=== PATIENT | female | born 1970 | race Caucasian/White ===

== ENCOUNTER → 2018-11-07 | Outpatient (REF) | payer BC ==
[~2018-11-07] MED LIST: ANOR1AER INH; BUSP10TA PO; FURO20TA2 PO; PROAAER10 INH; RANI150T PO; TRAM50TA2 PO
[2018-11-12 00:06] LABS: URINE METANEPHR/CREAT RATIO 1.1 (0.0-1.0)
[2018-11-12 00:06] LABS: METANEPHRINE TOTAL URINE 93 ug/L (Undefined); METANEPHRINE URINE 149 ug/24 hr (45-290); NORMETANEPHRINE TOTAL URINE 670 ug/L (Undefined); NORMETANEPHRINE URINE 1072 ug/24 hr (82-500)
== END ==
LOC: M LAB REF 09:02
PROVIDERS: ATTEND Internal Medicine Endocrinology, Diabetes & Metabolism
DX: D35.01 Benign neoplasm of right adrenal gland (principal)

== ENCOUNTER → 2018-11-07 | Outpatient (CLI) | payer BC ==
[~2018-11-07] MED LIST changes: +LIDOCAINE 1% MDV 20ML VIAL As Ordered ONE
--- NOTE | 2018-11-07 10:22 | REP ---
PA CHEST X-RAY: Single view. HISTORY: The patient is immediately status post CT guided needle biopsy for left lower lobe lesion. Comparison chest x-ray is from August 2009. Comparison chest CT study October 02, 2018. FINDINGS: The cavitary left lower lobe mass lesion is projected posterior to the heart. It contains some air along its superior aspect. There is no evidence of pneumothorax or hydrothorax. There is linear fibrosis versus plate-like atelectasis in the right base. Orthopedic anchors are seen in the left shoulder. IMPRESSION: Cavitary lesion persists behind the heart in the left lower lobe. No complication is seen. Electronically Signed by Juan Rodriguez MD 11/07/2018 11:16 A
--- NOTE | 2018-11-07 17:21 | REP ---
CT-guided left lower lobe lung biopsy The procedure was performed under the direct supervision of Dr. Rodriguez. The patient has a history of a left lower lobe lung mass seen on a previous CT scan dated 10/02/2080 from [facility]. The risks and benefits of the procedure were explained to the patient and informed consent was obtained. The left lower lobe lung mass was localized using CT guidance. The skin was prepped and draped in a sterile fashion. 1% lidocaine was used as a local anesthetic. Using CT guidance a 19/20 gauge coaxial needle biopsy system was inserted and advanced into the mass. Seven core biopsy samples were obtained and sent to lab. The patient tolerated the procedure well and there were no immediate complications. After the appropriate amount of monitored convalescence the patient was discharged from the department. Reviewed by SHEILA Lopez 11/07/2018 02:23 P Electronically Signed by Juan Rodriguez MD 11/07/2018 05:12 P
== END ==
LOC: M RADPRO 08:25
PROVIDERS: ATTEND Internal Medicine Pulmonary Disease
DX: R91.8 Other nonspecific abnormal finding of lung field (principal); Z79.899 Other long term (current) drug therapy

== ENCOUNTER → 2018-11-22 | Outpatient (CLI) | payer BC ==
[~2018-11-22] MED LIST changes: -LIDOCAINE 1% MDV 20ML VIAL As Ordered ONE
[2018-11-22 14:07] LABS: HEMOGLOBIN 18.4 g/dl (12.0-15.5); MEAN CORPUSCULAR HEMOGLOBIN 33.5 pg (27.0-33.0); MEAN CORPUSCULAR HGB CONC 32.3 g/dl (32.0-36.5); MEAN CORPUSCULAR VOLUME 103.6 fl (80.0-96.0); PLATELET COUNT, AUTOMATED 192 10^3/uL (150-450); WHITE BLOOD COUNT 7.5 10^3/uL (4.0-10.0)
[2018-11-22 14:12] LABS: ALBUMIN 3.5 GM/DL (3.2-5.2); ALT/SGPT 15 U/L (12-78); BILIRUBIN,TOTAL 0.6 MG/DL (0.2-1.0); BLOOD UREA NITROGEN 9 MG/DL (7-18); CALCIUM LEVEL 8.6 MG/DL (8.5-10.1); CARBON DIOXIDE LEVEL 32 MEQ/L (21-32); CHLORIDE LEVEL 100 MEQ/L (98-107); CREATININE FOR GFR 0.56 MG/DL (0.55-1.30); GLOMERULAR FILTRATION RATE > 60.0 (>58); GLUCOSE, FASTING 93 MG/DL (70-100); POTASSIUM SERUM 4.2 MEQ/L (3.5-5.1); SODIUM LEVEL 139 MEQ/L (136-145); TOTAL PROTEIN 7.4 GM/DL (6.4-8.2)
[2018-11-22 14:22] LABS: PROTHROMBIN TIME 13.3 SECONDS (12.1-14.4)
[2018-11-22 14:23] LABS: PARTIAL THROMBOPLASTIN TIME 32.6 SECONDS (25.4-37.6)
== END ==
LOC: M SMT 10:18
PROVIDERS: ATTEND Urology
DX: Z01.818 Encounter for other preprocedural examination (principal); E27.9 Disorder of adrenal gland, unspecified

== ENCOUNTER → 2018-12-07 | Outpatient (CLI) | payer BC ==
[~2018-12-07] MED LIST changes: +ISOVUE-370 76% 100ML VIAL (Q9967) As Ordered ONE
--- NOTE | 2018-12-07 20:04 | REP ---
CT of the abdomen, pelvis not included, without and with IV contrast: Studies performed for evaluation of a right adrenal mass. There is a 6.2 cm right adrenal mass. The CT density of this mass is 26 HU. On the images without IV contrast. This is compatible with malignancy. After IV contrast. There is a crescentic shaped zone of low density at the anterior and medial margins of this mass, possibly a subcapsular hematoma. The left adrenal is unremarkable. Within the visualized lower lung wall. The patient's known left lower lobe lung mass is again identified. There are a few air collections within this mass on the current study, likely sequela of the patient's percutaneous needle biopsy. The hepatic parenchyma is homogeneous on all phases of the study. There are surgical clips in the gallbladder fossa. The pancreas and spleen are unremarkable. Aorta is unremarkable. There is no retroperitoneal or mesenteric adenopathy within the visualized portion of the mesentery. The visualized bowel loops are unremarkable. There is no ascites in the visualized portion of the abdomen. Impression: There is a left adrenal mass as described. The CT density of this mass is compatible with neoplasm. Question of a subcapsular hematoma along the anterior and medial margins of the mass. Electronically Signed by Dominick Mora MD 12/07/2018 07:55 P
== END ==
LOC: M RAD 17:19
PROVIDERS: ATTEND Urology
DX: E27.8 Other specified disorders of adrenal gland (principal)
CPT/HCPCS: 74170; Q9967

== ENCOUNTER → 2018-12-25 | Outpatient (CLI) | payer BC ==
[~2018-12-25] VITALS: Ht 160 cm; Wt 131.5 kg
[~2018-12-25] MED LIST changes: +ATEN25TA PO; +BUPIVACAINE HCL 0.25% 30 ML VIAL As Ordered ONE; +CITA20TA4 PO; +COLA100C5 PO; -ISOVUE-370 76% 100ML VIAL (Q9967) As Ordered ONE; +LASI40TA9 PO; +LIDOCAINE 1% SDV INJ 30 ML VIAL As Ordered ONE; +LIDOCAINE 2% INJ 100 MG/5 ML SDV (FOR ANES.) As Ordered ONE; +LIDOCAINE 2% INJ 100 MG/5 ML SYRINGE As Ordered ONE; +LR 1,000 ML IV ONE; +MIDAZOLAM INJ 2 MG/2 ML VIAL (J2250) As Ordered ONE; +PHEN10CA2 PO; +PROPOFOL 200 MG/20 ML VIAL As Ordered ONE; +ROCURONIUM BROMIDE 50 MG/5 ML VIAL As Ordered ONE; +fentaNYL 100 MCG/2 ML INJECTION (J3010) As Ordered ONE
[2018-12-25 06:27] VITALS: BP 115/69
[2018-12-25 07:07] LABS: URINE PREG TEST NEGATIVE (NEGATIVE)
== END ==
LOC: M SDC 06:00 → UNDOADMIN 06:05 → M OR 06:05 → EDSTATUS 07:30
PROVIDERS: ATTEND Urology
DX: E27.9 Disorder of adrenal gland, unspecified (principal); Z53.9 Procedure and treatment not carried out, unspecified reason

== ENCOUNTER 2019-01-07 07:00 | Inpatient (IN) | payer BC ==
[2019-01-07] VITALS (9 sets, daily range): BP systolic 101–132; BP diastolic 54–72
[~2019-01-07] VITALS: Ht 160 cm; Wt 131.5 kg
[~2019-01-07 07:00] MED LIST changes: -BUPIVACAINE HCL 0.25% 30 ML VIAL As Ordered ONE; -COLA100C5 PO; -LASI40TA9 PO; -LIDOCAINE 1% SDV INJ 30 ML VIAL As Ordered ONE; -LIDOCAINE 2% INJ 100 MG/5 ML SDV (FOR ANES.) As Ordered ONE; -LIDOCAINE 2% INJ 100 MG/5 ML SYRINGE As Ordered ONE; -LR 1,000 ML IV ONE; -MIDAZOLAM INJ 2 MG/2 ML VIAL (J2250) As Ordered ONE; -PROPOFOL 200 MG/20 ML VIAL As Ordered ONE; -ROCURONIUM BROMIDE 50 MG/5 ML VIAL As Ordered ONE; -fentaNYL 100 MCG/2 ML INJECTION (J3010) As Ordered ONE
[2019-01-07] MEDS ORDERED: LR 1,000 ML IV SCH ×3 (07:15→17:30)
[2019-01-07 07:36] LABS: URINE PREG TEST NEGATIVE (NEGATIVE)
[2019-01-07] MEDS ORDERED: dexameTHASONE 4 MG/ML 1ML VIAL (J1100) As Ordered ONE (07:49)
[2019-01-07] MEDS ORDERED: LIDOCAINE 2% INJ 100 MG/5 ML SDV (FOR ANES.) As Ordered ONE ×2 (07:49→08:48)
[2019-01-07] MEDS ORDERED: ONDANSETRON 4MG/2ML VIAL (J2405) As Ordered ONE (07:49)
[2019-01-07] MEDS ORDERED: ROCURONIUM BROMIDE 50 MG/5 ML VIAL As Ordered ONE ×2 (07:50→09:51)
[2019-01-07] MEDS ORDERED: PROPOFOL 200 MG/20 ML VIAL As Ordered ONE (07:50)
[2019-01-07] MEDS ORDERED: fentaNYL 250 MCG/5 ML INJECTION (J3010) As Ordered ONE ×2 (07:52→09:34)
[2019-01-07] MEDS ORDERED: MIDAZOLAM INJ 2 MG/2 ML VIAL (J2250) As Ordered ONE (07:53)
[2019-01-07] MEDS ORDERED: LIDOCAINE 1% SDV INJ 30 ML VIAL As Ordered ONE ×2 (08:14→11:00)
[2019-01-07] MEDS ORDERED: BUPIVACAINE HCL 0.25% 30 ML VIAL As Ordered ONE ×2 (08:14→11:00)
[2019-01-07] MEDS ORDERED: NITROPRUSSIDE As Ordered ONE (08:18)
[2019-01-07] MEDS ORDERED: SODIUM CHLORIDE As Ordered ONE (08:18)
[2019-01-07] MEDS ORDERED: PERCOCET 5MG/325MG TAB PO PRN (08:30)
[2019-01-07] MEDS ORDERED: ALBUTEROL 90 MCG/ACT 8GM HFA INHALER INH PRN (08:30)
[2019-01-07] MEDS ORDERED: MORPHINE 4 MG/ML 1ML VIAL/SYRINGE (J2270) IV PRN (08:30)
[2019-01-07] MEDS ORDERED: ONDANSETRON 4MG/2ML VIAL (J2405) IV PRN ×3 (08:30→17:30)
[2019-01-07] MEDS ORDERED: NITROGLYCERIN IN D5W 25MG/250ML (100MCG/ML) As Ordered ONE (08:32)
[2019-01-07] MEDS ORDERED: METOPROLOL 5 MG/5 ML VIAL As Ordered ONE (08:38)
[2019-01-07] MEDS ORDERED: PHENTOLAMINE MESYLATE 5 MG VIAL (J2760 UP TO 5MG) XX ONE (09:00)
[2019-01-07] MEDS ORDERED: ESMOLOL INJ 100MG/10ML VIAL As Ordered ONE (09:03)
[2019-01-07] MEDS ORDERED: diphenhydrAMINE INJ 50MG/ML VIAL (J1200) As Ordered ONE (09:04)
[2019-01-07] MEDS ORDERED: VASOPRESSIN INJ 20 UNITS/ML VIAL As Ordered ONE (09:14)
[2019-01-07] MEDS ORDERED: ceFAZolin 2 GM/D5W 50 ML IV BAG (J0690 PER 500MG) As Ordered ONE (13:41)
[2019-01-07] MEDS ORDERED: SUGAMMADEX SODIUM 500 MG/5 ML VIAL (BRIDION) As Ordered ONE (13:54)
[2019-01-07] MEDS ORDERED: HYDROmorphone HCL 2 MG/ML 1ML VIAL (J1170) As Ordered ONE (14:26)
[2019-01-07] MEDS ORDERED: GLYCOPYRROLATE INJ 0.2 MG/ML 2 ML VIAL As Ordered ONE (14:39)
[2019-01-07 15:34] LABS: HEMATOCRIT 49.7 % (36.0-47.0); HEMOGLOBIN 16.1 g/dl (12.0-15.5); MEAN CORPUSCULAR HEMOGLOBIN 32.7 pg (27.0-33.0); MEAN CORPUSCULAR HGB CONC 32.4 g/dl (32.0-36.5); PLATELET COUNT, AUTOMATED 206 10^3/uL (150-450); RED BLOOD COUNT 4.92 10^6/uL (4.00-5.40); WHITE BLOOD COUNT 12.9 10^3/uL (4.0-10.0)
[2019-01-07 15:42] LABS: ABG BASE EXCESS 3.1 (-2.0-2.0); ABG HCO3 31.1 MEQ/L (22.0-26.0); ABG O2 LITER FLOW 50; ABG O2 SATURATION 89.2 % (95.0-99.0); ABG PARTIAL PRESSURE O2 59.3 mmHg (75.0-100.0); ABG STANDARD HCO3 26.9 MEQ/L (22.0-26.0); ABG pH (ARTERIAL) 7.329 UNITS (7.350-7.450)
[2019-01-07] MEDS ORDERED: HYDROMORPHONE HCL 0.5 MG/ 0.5 ML SYRINGE (J1170 PER 1) IV PRN ×2 (15:45→17:30)
[2019-01-07] MEDS ORDERED: fentaNYL 100 MCG/2 ML INJECTION (J3010) IV PRN ×2 (15:45→17:30)
[2019-01-07 15:46] LABS: ABG PARTIAL PRESSURE CO2 60.5 mmHg (35.0-45.0)
[2019-01-07] MEDS ORDERED: ALBUTEROL SULFATE 2.5 MG/0.5 ML INH NEB SOLN As Ordered ONE (15:55)
[2019-01-07 16:04] LABS: BLOOD UREA NITROGEN 9 MG/DL (7-18); CALCIUM LEVEL 7.6 MG/DL (8.5-10.1); CARBON DIOXIDE LEVEL 30 MEQ/L (21-32); CHLORIDE LEVEL 103 MEQ/L (98-107); CREATININE FOR GFR 0.77 MG/DL (0.55-1.30); GLOMERULAR FILTRATION RATE > 60.0 (>58); GLUCOSE, FASTING 157 MG/DL (70-100); POTASSIUM SERUM 4.2 MEQ/L (3.5-5.1); SODIUM LEVEL 137 MEQ/L (136-145)
[2019-01-07] MEDS ORDERED: PERCOCET 5MG/325MG TAB PO SCH (16:30)
[2019-01-07] MEDS ORDERED: KETOROLAC 30 MG/ML VIAL (J1885) As Ordered ONE (17:06)
[2019-01-07 17:11] LABS: ABG HCO3 31.2 MEQ/L (22.0-26.0); ABG O2 LITER FLOW 50; ABG PARTIAL PRESSURE O2 57.6 mmHg (75.0-100.0); ABG STANDARD HCO3 26.9 MEQ/L (22.0-26.0); ABG TOTAL CO2 33.1 MEQ/L (22.0-29.0); ABG pH (ARTERIAL) 7.323 UNITS (7.350-7.450)
[2019-01-07 17:13] LABS: ABG PARTIAL PRESSURE CO2 61.5 mmHg (35.0-45.0)
[2019-01-07] MEDS ORDERED: KETOROLAC 30 MG/ML VIAL (J1885) IV PRN (17:30)
[2019-01-07] MEDS: NS 1,000 ML IV SCH ×2 (17:46→17:48)
[2019-01-07] MEDS: DOCUSATE SODIUM 100 MG CAP PO SCH ×2 (18:33→21:06)
[2019-01-07] MEDS: ATENOLOL 25 MG TAB PO SCH (18:34)
--- NOTE | 2019-01-07 18:40 | IPNPDOC ---
Text Note Date of Service The patient was seen on 01/07/19. NOTE 48yo female w PMH of COPD on home prn oxygen (follows with Dr Gray) sp adrenalectomy with Dr Harry for adrenal mass with post-op hypoxia. Per HUMAN RESOURCES OPERATIONS COORDINATOR , pt's O2 sat pre-op was mid-80s. Patient currently on ventimask post-op and saturating 88%. Pt to be transferred to the ICU. I spoke with Dr Harry and recommended that pulmonary should be consulted for this patient known to their service with hx of COPD for post-op oxygen management. He was in agreement and will re-consult when patient is stable from a respiratory standpoint and plans to be transferred out of the ICU to the floor. VS,Fishbone, I+O VS, Fishbone, I+O Laboratory Tests 01/07/19 14:49 Red Blood Count 4.92, Mean Corpuscular Volume 101.0 H, Mean Corpuscular Hemoglobin 32.7, Mean Corpuscular Hemoglobin Concent 32.4, Red Cell Distribution Width 16.6 H, Calcium Level 7.6 L Vital Signs Date Time Temp Pulse Resp B/P (MAP) Pulse Ox O2 Delivery O2 Flow Rate FiO2 01/07/19 17:57 97.9 24 110/66 85 50.0 01/07/19 17:35 87 01/07/19 17:25 40 DARBY SALCIDO MD Jan 07, 2019 18:40
[2019-01-07] MEDS: HEPARIN SOD (PORCINE) 5000 UNITS/ML VIAL SC SCH ×2 (18:46→21:07)
[2019-01-07] MEDS: raNITIdine SYRUP 150 MG/10 ML UDC PO SCH (18:46)
[2019-01-07] MEDS: FUROSEMIDE 20 MG TAB PO SCH (18:46)
[2019-01-07] MEDS: ceFAZolin SOD 1 GM in D5W MINI-BAG PLUS 50 ML IV SCH (18:47)
--- NOTE | 2019-01-07 19:20 | CR ---
DATE OF CONSULTATION: 01/07/2019 I was asked to see Catia here in the intensive care unit. She is normally followed by Dr. Gray in the outpatient setting and was last seen by her in November. She is known to have significant obstructive lung disease with an FEV1 of 1.84 liters or 65% predicted with only minimal bronchodilator response. She was noted to have significant capacity impairment at about 45%. Unfortunately she still smokes, maybe a pulmonary hypertension. She has marked hypoxemia at rest and is 84% on room air at baseline. She is supposed to be on 4 liters nasal cannula oxygen continuously but historically noncompliant. She continues to smoke. As an outpatient she is Anoro and albuterol. 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 She is noted to have a sizable left lower lobe mass which recently was biopsied and no cancer was found. It is not PET avid. This is being followed by Dr. Gray. Intraoperatively she had about a 500 mL blood loss and was resuscitated. She did not require Vasopressors. She is currently here in the in intensive care unit on a 45% Venti-mask. Saturation is 86-89%. She denies any symptoms. ALLERGIES: Listed as alprazolam and citalopram. MEDICATIONS AT HOME: Tramadol, ProAir, Anoro, BuSpar, Lasix and oxygen (noncompliant). PAST MEDICAL HISTORY: Significant for her left lower lobe mass. 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 SOCIAL HISTORY: She lives at home with family. FAMILY HISTORY: Noncontributory to her current status. REVIEW OF SYSTEMS: As per the history of present illness. Constitutional negative for recent fever or chills. HEENT: Unremarkable. PULMONARY: As history of present illness. CARDIAC: No angina. GI: Significant for her reflux disease. : Unremarkable for dysuria or urgency but now status-post adrenalectomy. NEUROLOGIC: Unremarkable for seizures or strokes. ENDOCRINE: Unremarkable for diabetes and thyroid disease. PSYCHIATRIC: Unremarkable. PHYSICAL EXAMINATION: This is a pleasant female lying in bed in the intensive care unit. Blood pressure 110/66, heart rate 84 with a sinus mechanism and she is currently afebrile. HEENT: Otherwise normocephalic, atraumatic. Pupils are reactive. NECK: Supple. Trachea is midline. CHEST: Diminished but symmetric expansion. LUNGS: No focal lesion, crackles or rubs. CARDIAC: Regular with no gallops. Peripheral pulses are palpable with no edema. ABDOMEN: Her incision is clean and dry. EXTREMITIES: Without cyanosis or clubbing. NEUROLOGICALLY: She is awake, alert, and appropriate. PSYCHE: Normal affect. Most recent blood gas done on 50% Venti-mask has a pH of 7.333, Pc02 61.5, Po2 57, saturation 89%. Chest x-ray is pending. Hemoglobin 16.1 done at 1449, sodium 137, chloride 103, CO2 30, BUN 4, creatinine 0.9. IMPRESSION: 1. Nonobstructive lung disease. 2. Continued tobacco abuse. 3. Chronic hypoxemic respiratory failure with no compliance with therapy. Status-post right adrenalectomy. At this point we will try her on vapotherapy and recheck a blood gas. She may actually require bilevel noninvasive support but we will see how that goes. She was counseled regarding smoking cessation but I am not at all optimistic given her history. She will be followed closely while she is here in the hospital. Further recommendations made in the progress record as new information becomes available.
--- NOTE | 2019-01-07 19:34 | REP ---
Clinical: Hypoxemia. Comparison: 11/07/2018. Findings: Mild cardiomegaly cannot be excluded. Bibasilar opacities suggest infiltrates and/or atelectasis (left greater than right). No definite effusion. No pneumothorax. Skeletal structures are intact. Impression: Bibasilar opacities suggesting atelectasis/infiltrates (left greater than right). Electronically Signed by Denis Godfrey MD 01/07/2019 07:26 P
[2019-01-07] MEDS: ALBUTEROL SULFATE 2.5 MG/0.5 ML INH NEB SOLN NEB SCH (19:44)
[2019-01-07] MEDS: ADVAIR HFA 230/21MCG INHALER INH SCH (19:44)
[2019-01-07 19:48] LABS: ABG BASE EXCESS 2.9 (-2.0-2.0); ABG HCO3 30.2 MEQ/L (22.0-26.0); ABG O2 SATURATION 92.7 % (95.0-99.0); ABG PARTIAL PRESSURE CO2 55.9 mmHg (35.0-45.0); ABG PARTIAL PRESSURE O2 66.5 mmHg (75.0-100.0); ABG STANDARD HCO3 26.9 MEQ/L (22.0-26.0); ABG TOTAL CO2 31.9 MEQ/L (22.0-29.0)
[2019-01-08] VITALS (20 sets, daily range): BP systolic 89–143; BP diastolic 52–77
[2019-01-08] MEDS: ALBUTEROL SULFATE 2.5 MG/0.5 ML INH NEB SOLN NEB SCH ×6 (00:36→20:00)
[2019-01-08] MEDS: ceFAZolin SOD 1 GM in D5W MINI-BAG PLUS 50 ML IV SCH (00:39)
[2019-01-08] MEDS: NS 1,000 ML IV SCH (03:59)
[2019-01-08] MEDS: PERCOCET 5MG/325MG TAB PO PRN ×3 (04:14→21:26)
[2019-01-08] MEDS: HEPARIN SOD (PORCINE) 5000 UNITS/ML VIAL SC SCH ×3 (05:25→21:26)
[2019-01-08 05:38] LABS: HEMATOCRIT 48.3 % (36.0-47.0); HEMOGLOBIN 15.4 g/dl (12.0-15.5); MEAN CORPUSCULAR HEMOGLOBIN 32.8 pg (27.0-33.0); MEAN CORPUSCULAR HGB CONC 31.9 g/dl (32.0-36.5); MEAN CORPUSCULAR VOLUME 102.8 fl (80.0-96.0); PLATELET COUNT, AUTOMATED 171 10^3/uL (150-450); WHITE BLOOD COUNT 9.4 10^3/uL (4.0-10.0)
[2019-01-08 06:04] LABS: BLOOD UREA NITROGEN 7 MG/DL (7-18); CALCIUM LEVEL 7.4 MG/DL (8.5-10.1); CARBON DIOXIDE LEVEL 32 MEQ/L (21-32); CHLORIDE LEVEL 105 MEQ/L (98-107); CREATININE FOR GFR 0.51 MG/DL (0.55-1.30); GLOMERULAR FILTRATION RATE > 60.0 (>58); GLUCOSE, FASTING 85 MG/DL (70-100); POTASSIUM SERUM 4.5 MEQ/L (3.5-5.1); SODIUM LEVEL 141 MEQ/L (136-145)
[2019-01-08] MEDS: TIOTROPIUM INHALER/CAPSULE (SPIRIVA) INH SCH (07:22)
[2019-01-08] MEDS: ADVAIR HFA 230/21MCG INHALER INH SCH ×2 (07:22→21:55)
--- NOTE | 2019-01-08 09:15 | IPNPDOC ---
Assessment/Plan Date Seen The patient was seen on 01/08/19. 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 She was admitted to the ICU postop for closer pulmonary monitoring given poor baseline COPD. Her Hb is stable. BP has remained stable o/n. She is saturating in the low 90s on high pressure NC. Plan/VTE VTE Prophylaxis Ordered?: Yes VTE Exclusion Mechanical Proph: N/A:VTE Prophy Ordered VTE Exclusion Pharmacological: N/A:VTE Prophy Ordered Plan/Urinary Catheter Urinary Catheter: D/C Guzman Plan - appreciate pulmonary and hospitalist services for following - d/c catheter - percocet/morphine prn pain - ambulate - SCDs when in bed - SQH - incentive spirometry - regular diet - plan discharge later today or tomorrow if BP remains stable and once patient cleared to go home from pulmonary/hospitalist service Subjective Review oF Systems Chief Complaint The patient is a 48-year-old female admitted with a reason for visit of Adrenal Mass. Events since Last Encounter No acute events o/n. The patient notes minimal postop pain. Denies chest pain or SOB. Has not ambulated yet. No n/v. No f/c/ns. Objective Physical Examination General Exam: Alert, Cooperative, No Acute Distress ABDOMEN EXAM: Soft, Tenderness (minimal), Other (incisions clean/dry/intact) Neuro Exam: Normal Speech Psych Exam: Mental status NL Other physical findings catheter draining clear urine Vital Signs/I&O Vital Signs Date Time Temp Pulse Resp B/P (MAP) Pulse Ox O2 Delivery O2 Flow Rate FiO2 01/08/19 07:29 91 35.0 70 01/08/19 04:44 20 01/08/19 04:00 98.9 99 89/53 (65) 135/73 I&O- Last 24 Hours up to 6 AM 01/08/19 06:00 Intake Total 4680 ml Output Total 2300 ml Balance 2380 ml Laboratory Data Labs 24H Laboratory Tests 2 01/07/19 14:49: Nucleated Red Blood Cells % (auto) 0.0, Anion Gap 4L, Glomerular Filtration Rate > 60.0, Blood Urea Nitrogen 9, Creatinine 0.77, Sodium Level 137, Potassium Level 4.2, Chloride Level 103, Carbon Dioxide Level 30, Calcium Level 7.6L 01/07/19 15:33: Blood Gas Bicarbonate Standard 26.9H, Arterial Blood pH 7.329L, Arterial Blood Partial Pressure CO2 60.5*H, Arterial Blood Partial Pressure O2 59.3L, Arterial Blood Total CO2 33.0H, Arterial Blood HCO3 31.1H, Arterial Blood Base Excess 3.1H, Arterial Blood Oxygen Saturation 89.2L, Arterial Blood Gas Liter Flow 50, Oxygen Delivery Device VENTIMASK 01/07/19 17:00: Blood Gas Bicarbonate Standard 26.9H, Arterial Blood pH 7.323L, Arterial Blood Partial Pressure CO2 61.5*H, Arterial Blood Partial Pressure O2 57.6L, Arterial Blood Total CO2 33.1H, Arterial Blood HCO3 31.2H, Arterial Blood Base Excess 3.0H, Arterial Blood Oxygen Saturation 89.0L, Arterial Blood Gas Liter Flow 50, Oxygen Delivery Device VENTIMASK 01/07/19 19:39: Blood Gas Bicarbonate Standard 26.9H, Arterial Blood pH 7.350, Arterial Blood Partial Pressure CO2 55.9H, Arterial Blood Partial Pressure O2 66.5L, Arterial Blood Total CO2 31.9H, Arterial Blood HCO3 30.2H, Arterial Blood Base Excess 2.9H, Arterial Blood Oxygen Saturation 92.7L 01/08/19 05:21: Nucleated Red Blood Cells % (auto) 0.0, Anion Gap 4L, Glomerular Filtration Rate > 60.0, Blood Urea Nitrogen 7, Creatinine 0.51L, Sodium Level 141, Potassium Level 4.5, Chloride Level 105, Carbon Dioxide Level 32, Calcium Level 7.4L CBC/BMP Laboratory Tests 01/07/19 14:49 Red Blood Count 4.92, Mean Corpuscular Volume 101.0 H, Mean Corpuscular Hemoglobin 32.7, Mean Corpuscular Hemoglobin Concent 32.4, Red Cell Distribution Width 16.6 H, Calcium Level 7.6 L 01/08/19 05:21 Red Blood Count 4.70, Mean Corpuscular Volume 102.8 H, Mean Corpuscular Hemoglobin 32.8, Mean Corpuscular Hemoglobin Concent 31.9 L, Red Cell Distribution Width 16.7 H, Calcium Level 7.4 L KASSI BIGGS MD Jan 08, 2019 09:15
[2019-01-08] MEDS: LR 1,000 ML IV SCH ×2 (09:59→21:26)
[2019-01-08] MEDS: DOCUSATE SODIUM 100 MG CAP PO SCH ×2 (09:59→21:26)
[2019-01-08] MEDS: raNITIdine SYRUP 150 MG/10 ML UDC PO SCH (09:59)
[2019-01-08] MEDS: FUROSEMIDE 20 MG TAB PO SCH (10:14)
[2019-01-08] MEDS: ATENOLOL 25 MG TAB PO SCH (10:14)
[2019-01-08] MEDS ORDERED: LR 1,000 ML IV ONE (10:30)
[2019-01-08 13:40] LABS: HEMATOCRIT 47.9 % (36.0-47.0); HEMOGLOBIN 15.5 g/dl (12.0-15.5)
[2019-01-09] VITALS (7 sets, daily range): BP systolic 89–123; BP diastolic 50–71
[2019-01-09] MEDS: ALBUTEROL SULFATE 2.5 MG/0.5 ML INH NEB SOLN NEB SCH ×7 (00:26→23:43)
[2019-01-09 04:56] LABS: HEMATOCRIT 46.7 % (36.0-47.0); HEMOGLOBIN 14.7 g/dl (12.0-15.5); MEAN CORPUSCULAR HEMOGLOBIN 32.7 pg (27.0-33.0); MEAN CORPUSCULAR HGB CONC 31.5 g/dl (32.0-36.5); PLATELET COUNT, AUTOMATED 152 10^3/uL (150-450); RED BLOOD COUNT 4.49 10^6/uL (4.00-5.40); WHITE BLOOD COUNT 9.1 10^3/uL (4.0-10.0)
[2019-01-09 05:12] LABS: BLOOD UREA NITROGEN 6 MG/DL (7-18); CALCIUM LEVEL 7.4 MG/DL (8.5-10.1); CARBON DIOXIDE LEVEL 32 MEQ/L (21-32); CHLORIDE LEVEL 106 MEQ/L (98-107); GLOMERULAR FILTRATION RATE > 60.0 (>58); GLUCOSE, FASTING 88 MG/DL (70-100); MAGNESIUM LEVEL 1.8 MG/DL (1.8-2.4); SODIUM LEVEL 143 MEQ/L (136-145)
[2019-01-09] MEDS: HEPARIN SOD (PORCINE) 5000 UNITS/ML VIAL SC SCH ×3 (05:18→21:07)
[2019-01-09] MEDS: LR 1,000 ML IV SCH (05:18)
--- NOTE | 2019-01-09 07:07 | CR ---
DATE OF CONSULTATION: 01/08/2019 REFERRING PHYSICIAN: Dr. Harry, electrical instrument repairer Dr. Sam. PRIMARY CARE PROVIDER: Jeanine Fontenot REASON FOR CONSULTATION: Medical management. 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 Mesha Whitaker, status post surgery complicated with hypoxic hypercarbia, hospitalist consulted for further assistance with medical management. The patient is currently on Vapotherm with 50% FiO2 and 35 liters flow. Pulmonology has been on consult. Patient denies any chest pain, pressure or discomfort. Denies any shortness of breath, feeling comfortable. Had an arterial line overnight with borderline blood pressure. ALLERGIES: 1. XANAX. 2. CITALOPRAM. PAST MEDICAL HISTORY: See above. PAST SURGICAL HISTORY: Yesterday the patient had a right sided adrenalectomy. Hip surgery. Left lower lobe lung mass. Vocal cord polyp removal. History of Warthin's tumor in the salivary gland. SOCIAL HISTORY: Lives at home with family, still smokes half a pack per day. No alcohol history. FAMILY HISTORY: Noncontributory. REVIEW OF SYSTEMS: Negative. Patient denies any chest pain, pressure or discomfort. Denies any shortness of breath. Denies any fevers or chills. Denies any abdominal pain, chest pain, shortness of breath. Moves all four extremities. Denies any weakness. Denies any speech difficulties. Denies any depression. Has a Guzman catheter. PHYSICAL EXAMINATION: VITAL SIGNS: Temperature 98.6, pulse 84, respirations 20, blood pressure 102/68, pulse oximetry 90% on 50% FiO2 with 30 liters. GENERAL: Patient morbidly obese, alert, in no acute distress. HEENT: Normocephalic, atraumatic. PULMONARY: Diminished breath sounds bilateral bases. No crackles, wheeze or rales. CARDIAC: Regular S1 and S2. ABDOMEN: Incisions clean, dry and intact. Positive bowel sounds. EXTREMITIES: No edema of bilateral lower extremities. ASSESSMENT/PLAN: This is a 48-year-old female patient with underlying medical history of COPD, chronic hypoxic respiratory failure, active smoker, hypertension, admitted under the urology service for elective right sided adrenalectomy for presumed pheochromocytoma. Medicine consulted for medical management. PROBLEMS: 1. Elective right sided adrenal mass with elective right sided adrenalectomy for presumed pheochromocytoma. Postoperative management as per urology. Given the resection of potential pheochromocytoma, will follow-up on pathology. Will need to monitor the patient's blood pressure closely. Aggressive IV fluids for hydration. Potential need for pressors. Once blood pressure is stable will discontinue arterial line. Discontinue Guzman catheter. Holding metoprolol and Lasix given the patient's borderline blood pressure. Blood pressure improved with IV fluids. Will also closely need to monitor the patient's glucose for hypoglycemia. Pain regimen as per urologist. Incentive spirometry. Diet as per urologist. 2. History of hypertension. Just had adrenal resection for possible pheochromocytoma. Will need to monitor blood pressure closely. The patient did have an arterial line, but is getting IV fluids and once blood pressure improves will discontinue arterial line. Holding Lopressor, holding atenolol at this point given borderline blood pressure. Holding phenoxybenzamine at this point. 3. Chronic hypoxic hypercarbic respiratory failure secondary to COPD. Poorly compliant. Pulmonology on consult. Patient is currently on Vapotherm. Will try to wean the patient to 4 liters. X-ray repeat has been ordered. Will get an echocardiogram given worsening hypoxia. The patient is poorly compliant. EzPAP for pulmonary expansion. Advair, Spiriva nebulizer treatment as ordered. 4. Morbid obesity complicating care. Possible component of obesity hypoventilation syndrome. 5. Gastroesophageal reflux disease (GERD). Continue current medications. 6. Deep vein thrombosis (DVT) prophylaxis. Heparin subcu, thromboembolic deterrent stockings (TEDS) and sequentials. 7. Smoking. Counseling provided. Patient still smokes. DISPOSITION: Pending clinical improvement, physical therapy, will try to get patient to baseline O2 requirement.
--- NOTE | 2019-01-09 07:40 | IPNPDOC ---
Assessment/Plan Date Seen The patient was seen on 01/09/19. Patient Summary This is a 48 y/o F POD2 s/p right robotic adrenalectomy for a presumed pheochromocytoma. She was admitted to the ICU postop for closer pulmonary monitoring given poor baseline COPD. Her Hb is stable. BP is stable. O2 sats are stable in high 80s - low 90s on high pressure NC. UOP has been very good. Plan/VTE VTE Prophylaxis Ordered?: Yes VTE Exclusion Mechanical Proph: N/A:VTE Prophy Ordered VTE Exclusion Pharmacological: N/A:VTE Prophy Ordered Plan - tylenol or percocet prn pain - appreciate management by pulmonary and hospitalist group - ambulate - SCDs when in bed - SQH - incentive spirometry - regular diet - discharge home pending clearance by hospitalist Subjective Review oF Systems Chief Complaint The patient is a 48-year-old female admitted with a reason for visit of Adrenal Mass. Events since Last Encounter No acute events o/n. Patient notes that she has minimal incisional pain. She ambulated well w/ PT yesterday. Tolerating regular diet w/ no n/v. No flatus yet. No SOB or chest pain. No f/c/ns. Objective Physical Examination General Exam: Alert, Cooperative, No Acute Distress ABDOMEN EXAM: Soft, Other (incisions clean/dry/intact); No: Tenderness Skin Exam: Nl turgor and temperature Neuro Exam: Normal Speech Psych Exam: Mental status NL, Mood NL Vital Signs/I&O Vital Signs Date Time Temp Pulse Resp B/P (MAP) Pulse Ox O2 Delivery O2 Flow Rate FiO2 01/09/19 04:29 90 25.0 45 01/09/19 04:08 97.9 88 22 112/71 (85) I&O- Last 24 Hours up to 6 AM0 01/09/19 06:00 Intake Total 3580 ml Output Total 3100 ml Balance 480 ml Laboratory Data Labs 24H Laboratory Tests 2 01/08/19 10:02: Bedside Glucose (Misc Panel) 109H 01/08/19 12:00: Bedside Glucose (Misc Panel) 107H 01/08/19 17:27: Bedside Glucose (Misc Panel) 114H 01/09/19 00:25: Bedside Glucose (Misc Panel) 101 01/09/19 04:38: Nucleated Red Blood Cells % (auto) 0.0, Anion Gap 5L, Glomerular Filtration Rate > 60.0, Blood Urea Nitrogen 6L, Creatinine 0.50L, Sodium Level 143, Potassium Level 4.0, Chloride Level 106, Carbon Dioxide Level 32, Calcium Level 7.4L, Magnesium Level 1.8 CBC/BMP Laboratory Tests 01/08/19 13:24 01/09/19 04:38 Red Blood Count 4.49, Mean Corpuscular Volume 104.0 H, Mean Corpuscular Hemog lobin 32.7, Mean Corpuscular Hemoglobin Concent 31.5 L, Red Cell Distribution Width 17.1 H, Calcium Level 7.4 L FSBS Laboratory Tests Test 01/08/19 10:02 01/08/19 12:00 01/08/19 17:27 01/09/19 00:25 Range/Units Bedside Glucose (Misc Panel) 109 107 114 101 70-105 MG/DL KASSI BIGGS MD Jan 09, 2019 07:40
[2019-01-09] MEDS: ADVAIR HFA 230/21MCG INHALER INH SCH ×2 (07:42→20:03)
[2019-01-09] MEDS: TIOTROPIUM INHALER/CAPSULE (SPIRIVA) INH SCH (08:05)
--- NOTE | 2019-01-09 08:19 | REP ---
Chest x-ray: Two views. History: Hypoxia. Comparison study: January 07, 2019. Findings: EKG monitoring electrodes overlie the chest. There is blunting of the posterior pleural angles and hazy opacity at the bases is seen consistent with pleural effusions. There are are increased markings in the left lower lobe of the lung as well. Impression: Infiltrate suspected in the left lower lobe. Small bilateral pleural effusions. Heart size is normal. Electronically Signed by Juan Rodriguez MD 01/09/2019 08:11 A
[2019-01-09] MEDS ORDERED: FUROSEMIDE 40 MG/4 ML VIAL (J1940) IV SCH ×2 (09:00→10:00)
[2019-01-09] MEDS: DOCUSATE SODIUM 100 MG CAP PO SCH ×2 (09:05→21:06)
[2019-01-09] MEDS: raNITIdine SYRUP 150 MG/10 ML UDC PO SCH (09:05)
--- NOTE | 2019-01-09 18:48 | ECHO ---
DATE OF PROCEDURE: 01/09/2019 REFERRING PROVIDER: Dr. Acosta. PATIENT LOCATION: Room 3210 REASON FOR ECHOCARDIOGRAM: Shortness of breath. 2D MEASUREMENTS: IVS: 1.2 cm LV: 4.4 cm LVPW: 1.2 cm LA: 4.0 cm Aorta: 3.1 cm IVC: 1.9 cm DOPPLER MEASUREMENTS: Peak velocity across the aortic valve: 1.8 m/s Peak velocity across the LVOT: 1.7 m/s Mitral E: 0.84, Mitral A: 1.1, with a ratio of 0.8 2D COMMENTS: 1. Technically limited study due to poor acoustic window secondary to body habitus. 2. Mildly enlarged left atrium. Normal right atrium and left ventricle. 3. The atrial septum appeared to be normal without evidence of defect of shunt. 4. Normal aortic root. 5. Trace pericardial effusion noted. No evidence of cardiac tamponade. 6. Mildly calcified aortic valve with normal leaflet excursion. Normal mitral valve, tricuspid valve and pulmonic valve. The proximal pulmonary artery branches were not well visualized. 7. The inferior vena cava was normal in size at 1.0 cm. Central venous pressure is most likely normal. DOPPLER: No significant valvular abnormalities detected. Abnormal relaxation pattern was noted across the mitral valve leaflets as well as the mitral valve annulus consistent with some features of grade 1 left ventricular diastolic dysfunction. IMPRESSION: 1. Normal global left ventricular systolic function. There are some features of left ventricular diastolic dysfunction manifested by abnormal relaxation. 2. Aortic valve sclerosis but no aortic regurgitation. 3. No significant valvular abnormality defected. 4. Trace pericardial effusion noted. No evidence of cardiac tamponade. 5. The study was technically limited due to poor acoustic window.
--- NOTE | 2019-01-09 20:38 | IPNPDOC ---
Text Note Date of Service The patient was seen on 01/09/19. NOTE Sob with any exertion, required vapotherm at 25L and 50% still. GENERAL: Patient morbidly obese, alert, in no acute distress. HEENT: Normocephalic, atraumatic. PULMONARY: Diminished breath sounds bilateral bases. No crackles, wheeze or rales. CARDIAC: Regular S1 and S2. ABDOMEN: Incisions clean, dry and intact. Positive bowel sounds. EXTREMITIES: No edema of bilateral lower extremities. ASSESSMENT/PLAN: This is a 48-year-old female patient with underlying medical history of COPD, chronic hypoxic respiratory failure, active smoker, hypertension, admitted under the urology service for elective right sided adrenalectomy for presumed pheochromocytoma. Medicine consulted for medical management. PROBLEMS: 1. Elective right sided adrenal mass with elective right sided adrenalectomy for presumed pheochromocytoma. Postoperative management as per urology. Given the resection of potential pheochromocytoma, will follow-up on pathology. Will need to monitor the patient's blood pressure closely. off IVF. off A line. Discontinue Guzman catheter. Holding metoprolol. lasix given for fluid overload. Monitored glucose for hypoglycemia initially. Pain regimen as per urologist. Incentive spirometry. 2. History of hypertension. Just had adrenal resection for possible pheochromocytoma. Will need to monitor blood pressure closely. Holding beta maci at this point given borderline blood pressure. Holding phenoxybenzamine at this point. lasix for diuresis 3. Chronic hypoxic hypercarbic respiratory failure secondary to COPD. Poorly compliant. Pulmonology on consult. Patient is currently on Vapotherm. Will try to wean the patient to 4 liters. X-ray repeat. TTE appreciated. The patient is poorly compliant. EzPAP for pulmonary expansion. Advair, Spiriva nebulizer treatment as ordered. 4. fluid overload, possible diastolic CHF. TTE appreciated, lasix, I and O, daily weight 5. Morbid obesity complicating care. Possible component of obesity hypoventilation syndrome. 6. Gastroesophageal reflux disease (GERD). Continue current medications. 7. Deep vein thrombosis (DVT) prophylaxis. Heparin subcu, thromboembolic deterrent stockings (TEDS) and sequentials. 7. Smoking. Counseling provided. Patient still smokes. DISPOSITION: Pending clinical improvement, physical therapy, will try to get patient to baseline O2 requirement. VS,Fishbone, I+O VS, Fishbone, I+O Laboratory Tests 01/09/19 04:38 Red Blood Count 4.49, Mean Corpuscular Volume 104.0 H, Mean Corpuscular H emoglobin 32.7, Mean Corpuscular Hemoglobin Concent 31.5 L, Red Cell Distribution Width 17.1 H, Calcium Level 7.4 L Vital Signs Date Time Temp Pulse Resp B/P (MAP) Pulse Ox O2 Delivery O2 Flow Rate FiO2 01/09/19 20:04 90 18.0 50 01/09/19 16:00 98.4 93 18 95/55 (68) I&O- Last 24 Hours up to 6 AM 01/09/19 06:00 Intake Total 3580 ml Output Total 3100 ml Balance 480 ml ONI LAMB MD Jan 09, 2019 20:38
[2019-01-10] VITALS (10 sets, daily range): BP systolic 97–130; BP diastolic 55–76; O2SAT 91–96
[2019-01-10] MEDS: ALBUTEROL SULFATE 2.5 MG/0.5 ML INH NEB SOLN NEB SCH ×6 (03:27→23:40)
[2019-01-10 05:26] LABS: HEMATOCRIT 47.6 % (36.0-47.0); HEMOGLOBIN 15.3 g/dl (12.0-15.5); MEAN CORPUSCULAR HGB CONC 32.1 g/dl (32.0-36.5); MEAN CORPUSCULAR VOLUME 102.6 fl (80.0-96.0); PLATELET COUNT, AUTOMATED 156 10^3/uL (150-450); RED BLOOD COUNT 4.64 10^6/uL (4.00-5.40); WHITE BLOOD COUNT 7.3 10^3/uL (4.0-10.0)
[2019-01-10 05:45] LABS: BLOOD UREA NITROGEN 6 MG/DL (7-18); CALCIUM LEVEL 7.7 MG/DL (8.5-10.1); CARBON DIOXIDE LEVEL 29 MEQ/L (21-32); CHLORIDE LEVEL 104 MEQ/L (98-107); GLOMERULAR FILTRATION RATE > 60.0 (>58); GLUCOSE, FASTING 81 MG/DL (70-100); MAGNESIUM LEVEL 1.7 MG/DL (1.8-2.4); POTASSIUM SERUM 3.5 MEQ/L (3.5-5.1); SODIUM LEVEL 140 MEQ/L (136-145)
[2019-01-10] MEDS: HEPARIN SOD (PORCINE) 5000 UNITS/ML VIAL SC SCH ×3 (05:50→21:41)
[2019-01-10] MEDS: ADVAIR HFA 230/21MCG INHALER INH SCH ×2 (08:00→20:50)
[2019-01-10] MEDS: TIOTROPIUM INHALER/CAPSULE (SPIRIVA) INH SCH (08:00)
[2019-01-10] MEDS: FUROSEMIDE 40 MG/4 ML VIAL (J1940) IV SCH (08:03)
[2019-01-10] MEDS: raNITIdine SYRUP 150 MG/10 ML UDC PO SCH (08:03)
[2019-01-10] MEDS: DOCUSATE SODIUM 100 MG CAP PO SCH ×2 (08:03→21:00)
[2019-01-10] MEDS ORDERED: MAG SULF 1GM/100ML (MAG RUN) 1 GM in APPROPRIATE DILUENT 1 EA IV ONE (09:00)
[2019-01-10] MEDS ORDERED: POTASSIUM CHLORIDE 10 MEQ SR TABLET PO ONE (09:00)
[2019-01-10] MEDS: ACETAMINOPHEN TAB 650MG DOSE (2X325MG) PO PRN ×2 (18:29→23:57)
--- NOTE | 2019-01-10 20:03 | IPNPDOC ---
Text Note Date of Service The patient was seen on 01/10/19. NOTE Sob with any exertion. denied chest pain. abd pain, GENERAL: Patient morbidly obese, alert, in no acute distress. HEENT: Normocephalic, atraumatic. PULMONARY: Diminished breath sounds bilateral bases. No crackles, wheeze or rales. CARDIAC: Regular S1 and S2. ABDOMEN: Incisions clean, dry and intact. Positive bowel sounds. EXTREMITIES: No edema of bilateral lower extremities. ASSESSMENT/PLAN: This is a 48-year-old female patient with underlying medical history of COPD, chronic hypoxic respiratory failure, active smoker, hypertension, admitted under the urology service for elective right sided adrenalectomy for presumed pheochromocytoma. Medicine consulted for medical management. PROBLEMS: 1. Elective right sided adrenal mass with elective right sided adrenalectomy for presumed pheochromocytoma. Postoperative management as per urology. Given the resection of potential pheochromocytoma, will follow-up on pathology. Will need to monitor the patient's blood pressure closely. off IVF. off A line. Discontinue Guzman catheter. Holding metoprolol. lasix given for fluid overload. Monitored glucose for hypoglycemia initially. Pain regimen as per urologist. Incentive spirometry. 2. History of hypertension. Just had adrenal resection for possible pheochromocytoma. Will need to monitor blood pressure closely. Holding beta maci at this point given borderline blood pressure. Holding phenoxybenzamine at this point. lasix for diuresis 3. Chronic hypoxic hypercarbic respiratory failure secondary to COPD. Poorly compliant. Pulmonology on consult. Patient is currently on Vapotherm. Will try to wean the patient to 4 liters. X-ray repeat. TTE appreciated. The patient is poorly compliant. EzPAP for pulmonary expansion. Advair, Spiriva nebulizer treatment as ordered. switching from vapotherm to high flow nasal cannula, wean O2 in anticipation of DC. ABD repeat am. 4. acute diastolic CHF. 2/2 fluid overload TTE appreciated, lasix, I and O, daily weight 5. Morbid obesity complicating care. Possible component of obesity hypoventilation syndrome. 6. Gastroesophageal reflux disease (GERD). Continue current medications. 7. Deep vein thrombosis (DVT) prophylaxis. Heparin subcu, thromboembolic deterrent stockings (TEDS) and sequentials. 7. Smoking. Counseling provided. Patient still smokes. DISPOSITION: Pending clinical improvement, physical therapy, wean O2 VS,Fishbone, I+O VS, Fishbone, I+O Laboratory Tests 01/10/19 04:42 Red Blood Count 4.64, Mean Corpuscular Volume 102.6 H, Mean Corpuscular Hemoglobin 33.0, Mean Corpuscular Hemoglobin Concent 32.1, Red Cell Distribution Width 16.9 H, Calcium Level 7.7 L Vital Signs Date Time Temp Pulse Resp B/P (MAP) Pulse Ox O2 Delivery O2 Flow Rate FiO2 01/10/19 17:22 8.0 01/10/19 15:10 97.1 89 22 129/69 (89) 90 01/10/19 09:00 50 I&O- Last 24 Hours up to 6 AM 01/10/19 06:00 Intake Total 865 ml Output Total 4660 ml Balance -3795 ml ONI LAMB MD Jan 10, 2019 20:03
[2019-01-11] MEDS: ALBUTEROL SULFATE 2.5 MG/0.5 ML INH NEB SOLN NEB SCH ×3 (04:00→11:45)
[2019-01-11] MEDS: HEPARIN SOD (PORCINE) 5000 UNITS/ML VIAL SC SCH ×2 (05:38→14:00)
[2019-01-11 06:00] VITALS: BP 116/75
[2019-01-11 06:03] VITALS: O2SAT 91
[2019-01-11 06:17] LABS: HEMATOCRIT 48.5 % (36.0-47.0); HEMOGLOBIN 15.6 g/dl (12.0-15.5); MEAN CORPUSCULAR HGB CONC 32.2 g/dl (32.0-36.5); MEAN CORPUSCULAR VOLUME 102.5 fl (80.0-96.0); PLATELET COUNT, AUTOMATED 172 10^3/uL (150-450); RED BLOOD COUNT 4.73 10^6/uL (4.00-5.40); WHITE BLOOD COUNT 6.6 10^3/uL (4.0-10.0)
[2019-01-11 06:51] LABS: BLOOD UREA NITROGEN 12 MG/DL (7-18); CALCIUM LEVEL 8.7 MG/DL (8.5-10.1); CARBON DIOXIDE LEVEL 28 MEQ/L (21-32); CHLORIDE LEVEL 104 MEQ/L (98-107); CREATININE FOR GFR 0.48 MG/DL (0.55-1.30); GLOMERULAR FILTRATION RATE > 60.0 (>58); GLUCOSE, FASTING 90 MG/DL (70-100); POTASSIUM SERUM 3.2 MEQ/L (3.5-5.1); SODIUM LEVEL 140 MEQ/L (136-145)
[2019-01-11] MEDS: FUROSEMIDE 40 MG/4 ML VIAL (J1940) IV SCH (08:18)
[2019-01-11] MEDS: ACETAMINOPHEN TAB 650MG DOSE (2X325MG) PO PRN (08:19)
[2019-01-11 08:20] VITALS: BP 126/79
[2019-01-11] MEDS: DOCUSATE SODIUM 100 MG CAP PO SCH (08:46)
[2019-01-11] MEDS: raNITIdine SYRUP 150 MG/10 ML UDC PO SCH (08:47)
[2019-01-11] MEDS: ADVAIR HFA 230/21MCG INHALER INH SCH (08:48)
[2019-01-11] MEDS: TIOTROPIUM INHALER/CAPSULE (SPIRIVA) INH SCH (08:48)
[2019-01-11] MEDS ORDERED: POTASSIUM CHLORIDE 10 MEQ SR TABLET PO ONE (09:00)
[2019-01-11] MEDS ORDERED: COLA100C5 PO (12:13)
[2019-01-11] MEDS ORDERED: LASI40TA9 PO (12:13)
[2019-01-11] MEDS ORDERED: FUROSEMIDE 20 MG TAB PO ONE (14:00)
--- NOTE | 2019-01-11 21:37 | DSES ---
DATE OF ADMISSION: 01/07/2019 DATE OF DISCHARGE: 01/11/2019 PRIMARY CARE PROVIDER: Jeanine Fontenot UROLOGIST: Dr. Fernandez Harry [employer] SUPERVISOR: Dr. Mesha Whitaker [employer] COMPOSITES: Dr. Lester Sam FINAL DIAGNOSES: 1. Elective right adrenalectomy for presumed pheochromocytoma. 2. History of hypertension. 3. Chronic hypoxic hypercarbic respiratory failure. 4. Chronic obstructive pulmonary disease (COPD), poorly compliant. 5. Morbid obesity. 6. Acute diastolic congestive heart failure (CHF). 7. Smoking. 8. Gastroesophageal reflux disease (GERD). HISTORY OF PRESENT ILLNESS: This is a 48-year-old female patient with underlying medical history of obesity, COPD with chronic hypoxic respiratory failure requiring intermittent oxygen at home, continues to smoke half of a pack per day, poorly compliant, nephrolithiasis, hypertension, admitted initially under urology for elective right sided robotic adrenalectomy for presume pheochromocytoma. Postoperative was complicated with hypoxia, hypercarbic respiratory failure requiring Vapotherm. Manager English, Dr. Sam, was on consultation for assistance. The patient denies any chest pain, pressure or discomfort. Denies any shortness of breath. Required intensive care unit (ICU) stay with arterial line and aggressive fluid hydration for possible blood pressure fluctuations given the patient is borderline hypotensive post surgery. HOSPITAL COURSE: The patient was monitored in the intensive care unit (ICU) with arterial line for 24 hours. Aggressive IV fluids were provided given borderline blood pressure. Furthermore, serial ABGs were done. Vapotherm was provided with improvement of hypercarbia and hypoxia. Nicotine patch and smoking cessation provided. Nebulizer treatments and inhalers provided, as well as incentive spirometry. Physical therapy (PT) has been ordered. Echo was done. Repeat x-ray was appreciated showing evidence of fluid overload. Subsequently, the patient was diuresed aggressively and FiO2 was continued to be weaned. The patient was switched to high flow nasal cannula, passed physical therapy. The patient has been requesting to go home. Denies any chest pain, pressure or discomfort. Initially, in the ICU, every 2 hour fingersticks were ordered for monitoring of hypoglycemia as possible effect of adrenal gland resection. The patient's glucose remained stable and subsequently fingersticks every 2 hours was discontinued. The patient tolerating oral. Able to ambulate with physical therapy. Switched to high flow nasal cannula with a flow of 6 to 8 liters. The patient is at 4 liters baseline at home. Case discussed with pulmonology. The patient currently is comfortable and it is believed that the patient will not improve much from this FiO2 requirement. Subsequently, decision was made to discharge the patient home for further care as an outpatient. VITAL SIGNS: Temperature 97.4, pulse 84, respirations 19, blood pressure 126/79, pulse oximetry 92% on 6 liters of oxygen. LABORATORY DATA: WBC 6.6, hemoglobin and hematocrit 15.6/48.5, platelets 172. Sodium 140, potassium 3.2, chloride 104, bicarbonate 28, BUN 12, creatinine 0.48. GENERAL: The patient is morbidly obese, awake, comfortable and in no acute distress. HEENT: Normocephalic, atraumatic. Diminished breath sounds bilaterally. CARDIAC: Regular. S1, S2. ABDOMEN: Small incision from trocars. Clean, dry and intact. Positive bowel sounds. EXTREMITIES: No edema in bilateral lower extremities. DISCHARGE MEDICATIONS: - Colace 100 mg by mouth twice a day - Lasix 40 mg by mouth daily - ProAir inhalation every 4 hours as needed - Ellipta inhalation daily - ranitidine 150 mg by mouth daily - tramadol 50 mg by mouth every 6 hours as needed DISCHARGE INSTRUCTIONS: Please call urology office for followup appointment. Return to the emergency room if fevers, abdominal pain, chest pain, shortness of breath, persistent nausea and vomiting, difficulty urinating or any other symptoms. Please see primary care provider in 7 days. Please see urologist in 1 to 2 weeks. Please see sound assistant in 1 to 2 weeks. Weight loss. Adjust blood pressure medications as per primary care provider. Check blood pressure at home. Followup pathology from the resection with urologist. Daily weights and call provider if weight gain is greater than 3 pounds. Avoid smoking. Use oxygen. Return if symptoms worsen.
[2019-01-12] MEDS ORDERED: FUROSEMIDE 20 MG TAB PO SCH (09:00)
== END 2019-01-11 14:43 | disposition home or self-care (01) | DRG 401 ==
LOC: M OR 07:00 → M ICU 17:35 → M MSPAV 01-10 15:09
PROVIDERS: ADMIT Urology; ATTEND Hospitalist
PROC: 8E0W4CZ Robotic Assisted Procedure of Trunk Region, Percutaneous Endoscopic Approach (ICD-10-PCS; 2019-01-07)
PROC: 0GT34ZZ Resection of Right Adrenal Gland, Percutaneous Endoscopic Approach (ICD-10-PCS; principal; 2019-01-07 08:30)
DX: D35.01 Benign neoplasm of right adrenal gland (principal); I50.33 Acute on chronic diastolic (congestive) heart failure; J96.11 Chronic respiratory failure with hypoxia; Z68.43 Body mass index [BMI] 50.0-59.9, adult; E66.01 Morbid (severe) obesity due to excess calories; I11.0 Hypertensive heart disease with heart failure; J44.9 Chronic obstructive pulmonary disease, unspecified; K21.9 Gastro-esophageal reflux disease without esophagitis; F17.200 Nicotine dependence, unspecified, uncomplicated; Z91.19 Patient's noncompliance with other medical treatment and regimen; Z79.899 Other long term (current) drug therapy

== ENCOUNTER → 2020-02-24 | Outpatient (REF) | payer OTHER ==
[~2020-02-24] MED LIST changes: -CITA20TA4 PO; +CITA20TA6 PO; +COLA100C5 PO; +LASI40TA9 PO
== END ==
LOC: M LAB REF 15:40
PROVIDERS: ATTEND Otolaryngology
DX: D11.0 Benign neoplasm of parotid gland (principal)

== ENCOUNTER → 2020-03-19 | Outpatient (CLI) | payer OTHER ==
--- NOTE | 2020-03-19 15:23 | REPVR ---
PROCEDURE INFORMATION: Exam: CT Neck Without Contrast Exam date and time: 03/19/2020 2:49 PM Age: 49 years old Clinical indication: Other: Benign aries; Additional info: Benign neoplasm of parotid gland; Neck soft tissue TECHNIQUE: Imaging protocol: Computed tomography images of the neck without contrast. Radiation optimization: All CT scans at this facility use at least one of these dose optimization techniques: automated exposure control; mA and/or kV adjustment per patient size (includes targeted exams where dose is matched to clinical indication); or iterative reconstruction. COMPARISON: US ENT THYROID 02/24/2020 10:07 AM FINDINGS: Sinuses: Intraluminal cysts/polyps are present in the bilateral maxillary sinus. Nasopharynx: Unremarkable. Dental: Edentulous maxilla and mandible. Oropharynx: Unremarkable. No significant tonsillar enlargement. Hypopharynx: Unremarkable. Larynx: Unremarkable. Normal epiglottis. Retropharyngeal space: Unremarkable. Submandibular/Parotid glands: Posterior superficial right lobe parotid gland homogeneous mildly relatively hyperdense 3.1 x 2.1 x 2.3 cm sharply marginated lesion. The contralateral parotid gland is unremarkable. Thyroid: Normal. No enlarged or calcified nodules. Lymph nodes: Right level 2 lymph nodes measuring 6.7 mm and 9.2 mm short axis.. Trachea: Visualized trachea is unremarkable. Lungs: Small centrilobular emphysematous foci bilateral upper lobes. Bones/joints: No destructive bony process identified. Mild C6-C7 spondylosis. Soft tissues: Unremarkable. No significant soft tissue swelling. IMPRESSION: Nonspecific superficial lobe right parotid mass. Electronically signed by: Corbin Murphy On 03/19/2020 15:22:44 PM
== END ==
LOC: M RAD 14:44
PROVIDERS: ATTEND Otolaryngology
DX: D11.0 Benign neoplasm of parotid gland (principal); J34.1 Cyst and mucocele of nose and nasal sinus